=== PATIENT | male | born 1945 | race Caucasian/White ===

== ENCOUNTER 2017-02-13 16:58 | Emergency (ER) | payer OTHER, MEDICARE ==
[~2017-02-13] VITALS: Ht 175.2 cm; Wt 115.2 kg
[~2017-02-13 16:58] MED LIST: ADULT LOW DOSE81 MG PO; AMLODIPINE BESYL5 MG PO; GABAPENTIN300 MG PO; LIPITOR40 MG PO; LOSARTAN POTAS100 MG PO; OMEGA-3 KRILL1 EAC4 PO
[2017-02-13] MEDS ORDERED: HYDROCHLOROTH12.5 M1 PO (17:42)
[2017-02-13] MEDS ORDERED: LANTUS SOL100 UNIT/1 SUB-Q (17:43)
[2017-02-13] MEDS ORDERED: NORCO 7.5-3251 EACH PO (19:19)
== END 2017-02-13 19:36 | disposition home or self-care (01) ==
LOC: ED 16:58
DX: S20.211A Contusion of right front wall of thorax, initial encounter (principal); E11.9 Type 2 diabetes mellitus without complications; I10 Essential (primary) hypertension; Z79.4 Long term (current) use of insulin; Z79.82 Long term (current) use of aspirin; Z79.899 Other long term (current) drug therapy; W01.198A Fall on same level from slipping, tripping and stumbling with subsequent striking against other object, initial encounter
CPT/HCPCS: 71020; 99283

== ENCOUNTER 2022-02-07 06:35 | Day surgery (SDC) | payer MEDICARE, OTHER ==
[~2022-02-07] VITALS: Ht 175.3 cm; Wt 109.1 kg
[~2022-02-07 06:35] MED LIST changes: +AMLOD-VALSA-HC1 EAC1 PO; +FISH OIL 1,0001 EAC2 NG; +HUMULIN R100 UNIT/1 INJ; +HYDROCHLOROTH12.5 M1 PO; +LANTUS SOL100 UNIT/1 SUB-Q; +MULTI COMPLETE1 EACH PO; +NORCO 7.5-3251 EACH PO; +OMEGA 3 1,0001 EACH PO; +TART CHERRY CA1 EACH PO; +TURMERIC500 M3 PO
[2022-02-07] MEDS ORDERED: FUROSEMIDE20 MG PO (07:45)
--- NOTE | 2022-02-07 08:59 | NUR ---
02/07/22 0859 Latoya Herrera 0849-PATIENT ARRIVED TO PACU ON 6L MASK AWAKE RR EVEN. PATIENT LAYING LEFT LATERAL ABDOMEN SOFT. IVF INFUSING. SR. PER [employer] C[employer] APPLICATIONS COORDINATOR DO NOT NEED TO RECHECK GLUCOSE. 0851-PATIENT REPOSITIONED TO BACK REPORTS "CAN'T LAY ON LEFT SIDE ARM". HOB ELEVATED. PLACED ON RA RR EVEN 94%.
--- NOTE | 2022-02-07 12:56 | OR ---
[facility] [address], [place] [address] Signed DATE OF OPERATION: 02/07/2022 SURGEON: Ran Hsu MD PREOPERATIVE DIAGNOSES: 1. Personal history of colonic polyps, age 70 (2016). 2. Diverticulosis. 3. Father with colon cancer, age 51. 4. History of hemorrhoid banding. 5. Paternal aunts x2 with colon cancer. 6. Paternal uncle x1 with colon cancer. 7. Mildly anemic with hemoglobin 11.6, mean cell volume 92.0. POSTOPERATIVE DIAGNOSES: 1. A 5 mm polyp at 25 cm. 2. A 5 mm polyp at 18 cm. 3. Minimal left-sided diverticulosis. 4. Minimal internal hemorrhoids. PROCEDURE: Colonoscopy with hot biopsy. ESTIMATED BLOOD LOSS: None. INDICATIONS: Elmo is a 76-year-old gentleman asked to see me for a followup colonoscopy. He talked about a sigmoidoscopy around age 56. I helped him with a colonoscopy in 2016 at the age of 70 for screening purposes. He had two small adenomatous polyps removed at that time less than 4 mm in diameter. He had minimal diverticulosis. We had used Versed and fentanyl, but it was quite the ordeal. We had to use a nasal trumpet in his CPAP mask and so forth. In that regard, he is scheduled with monitored anesthesia care today and it worked out very well. In addition, his father was diagnosed and of colon cancer at age 51. Both his paternal aunts and a paternal uncle had colon cancer. He talked about hemorrhoid banding in the past. His heart rate runs slow in the 50s, but he did see his ambulatory analyst recently in evaluation, came out fine according to him. He has no lower GI complaints. In the office, I gave him a pamphlet on colonoscopy. He understands the nature of the test along with the risks including, but not limited to gas bloating, crampy abdominal pain, bleeding, perforation requiring surgery, and missed diagnosis. He had expressed understanding and wished to proceed. Electronically Signed By: RAN HSU MD 02/07/22 1256 PATIENT NAME: ELMO TREJO OPERATIVE REPORT DATE OF : 47 REPORT #: [id number] PHYSICIAN: RAN HSU MD PCP: BLANCHE GUERRERO PAC REPORT IS CONFIDENTIAL AND NOT TO BE RELEASED WITHOUT AUTHORIZATION [facility] [address] [place] [id number] Signed DESCRIPTION OF PROCEDURE: Elmo was taken into our endoscopy suite and placed in the left lateral decubitus position. He was given monitored anesthesia care with propofol per our nurse custody assistant. A digital rectal exam was performed and this was unremarkable. He had good sphincter tone and no external hemorrhoids. The adult colonoscope was introduced and advanced under direct visualization of the camera into the cecum itself. His prep was good. We could see the appendiceal orifice and ileocecal valve. The scope was then slowly withdrawn. We took pictures throughout for photodocumentation. We found just a few diverticula on the left side of the colon, there were small in size, few in number, and scattered about. He had two tiny polyps removed as stated above. Upon retroflexion of scope, there was very minimal internal hemorrhoid tissue. After this, the gas was suctioned out, the colonoscope removed. Elmo tolerated the procedure quite well. RECOMMENDATIONS: I will see Elmo back in my office in 7 to 14 days to review his results. He remains on the 5-year plan, so long his health holds up. Ran Hsu MD ALB/MODL /[id number] cc: Patient Chart MD Blanche Coles PA-C Copies: RAN HSU MD, ERIKA PAC ~ Electronically Signed By: RAN HSU MD 02/07/22 1256 PATIENT NAME: ELMO TREJO OPERATIVE REPORT DATE OF : 47 REPORT #: [id number] PHYSICIAN: RAN HSU MD PCP: BLANCHE GUERRERO REPORT IS CONFIDENTIAL AND NOT TO BE RELEASED WITHOUT AUTHORIZATION
--- NOTE | 2022-02-11 16:23 | PATH ---
[facility] [address] [place], [place] [address] Signed SPECIMEN(S): A POLYP AT 25 CM SPECIMEN(S): B POLYP AT 18 CM SPECIMEN SOURCE: A. POLYP AT 25 CM B. POLYP AT 18 CM CLINICAL HISTORY: Colonoscopy. History of polyps and diverticulosis. FINAL PATHOLOGIC DIAGNOSIS: A. Colon, polyp at 25 cm, polypectomy: - Cauterized colonic mucosa with no identified histopathologic abnormality. - Negative for dysplasia or malignancy. B. Colon, polyp at 18 cm, polypectomy: - Hyperplastic polyp. - Negative for dysplasia or malignancy. COMMENT: Regarding specimen A: The degree of cautery artifact limits histologic evaluation for hyperplastic changes. NAL:cml:C2NR MICROSCOPIC EXAMINATION: Histologic sections of all submitted blocks are examined by light microscopy. These findings, together with the gross examination, support the pathologic diagnosis. GROSS DESCRIPTION: Two specimens are received in two containers, labeled "SC." A. The specimen, labeled "SC, polyp at 25 cm," is received in formalin and consists of one marie soft tissue fragment that measures 0.3 cm in greatest dimension. The specimen is entirely submitted in cassette (A1). B. The specimen, labeled "SC, polyp at 18 cm," is received in formalin and consists of one marie soft tissue fragment that measures 0.3 cm in greatest dimension. The specimen is entirely submitted in cassette (B1). AT (under the direct supervision of a pathologist) The Gross Description was prepared using a voice recognition system. The report was reviewed for accuracy; however, sound-alike word errors, addition and/or PATIENT NAME: SHASTA TREJO PATHOLOGY DATE OF : 47 REPORT #: [id number] PHYSICIAN: RICKI ACUNA PCP: AISHA GUERRERO PAC REPORT IS CONFIDENTIAL AND NOT TO BE RELEASED WITHOUT AUTHORIZATION [facility] [address] [place], [place] [address] Signed deletions may occur. If there is any question about this report, please contact Client Services. PERFORMING LABORATORY: The technical component was performed by [facility] [address] (CLIA# [id number]). Professional interpretation was performed by [facility], [address] [address] (CLIA# [id number]). Diagnostician: Bettina Lovett MD Pathologist Electronically Signed 02/11/2022 Copies: ~ PATIENT NAME: SHASTA TREJO PATHOLOGY DATE OF : 47 REPORT #: [id number] PHYSICIAN: RICKI ACUNA PCP: AISHA GUERRERO PAC REPORT IS CONFIDENTIAL AND NOT TO BE RELEASED WITHOUT AUTHORIZATION
== END 2022-02-07 09:33 | disposition home or self-care (01) ==
LOC: OPS 06:35 → DS 06:35 → OPS 08:00 → DS 08:00 → OPS 09:33
PROVIDERS: ATTEND Colon & Rectal Surgery
PROC: 0DBE8ZX Excision of Large Intestine, Via Natural or Artificial Opening Endoscopic, Diagnostic (ICD-10-PCS; principal; 2022-02-07 08:00)
DX: K63.5 Polyp of colon (principal); K57.30 Diverticulosis of large intestine without perforation or abscess without bleeding; K64.8 Other hemorrhoids; D64.9 Anemia, unspecified; E11.9 Type 2 diabetes mellitus without complications; I10 Essential (primary) hypertension; K21.9 Gastro-esophageal reflux disease without esophagitis; G47.30 Sleep apnea, unspecified; E78.5 Hyperlipidemia, unspecified; M19.90 Unspecified osteoarthritis, unspecified site; Z86.711 Personal history of pulmonary embolism; Z86.010 Personal history of colon polyps; Z80.0 Family history of malignant neoplasm of digestive organs; Z79.4 Long term (current) use of insulin
CPT/HCPCS: J2704; J7121

== ENCOUNTER 2024-07-21 08:27 | Emergency (ER) | payer MEDICARE, OTHER ==
[~2024-07-21] VITALS: Ht 175.3 cm; Wt 107.4 kg
[~2024-07-21 08:27] MED LIST changes: +FUROSEMIDE20 MG PO
[2024-07-21] MEDS ORDERED: SODIUM CHLORIDE 0.9% 1,000 ML IV ONE (09:00)
[2024-07-21] MEDS ORDERED: ondansetron HCL 4 MG/2 ML VIAL IV ONE (09:00)
[2024-07-21 09:41] LABS: BASOPHILS 1.1 % (0-2); EOSINOPHILS 1.4 % (0-6); HEMATOCRIT 32.9 % (35.0-50.0); HEMOGLOBIN 11.1 g/dL (12.0-18.0); LYMPHOCYTES 16.4 % (24-44); MCH 32.5 (27-36); MCHC 33.8 g/dl (30-36); MCV 96.1 fl (81-99); MONOCYTES 5.5 % (0-12); NEUTROPHILS 75.6 % (39-80); PLATELET COUNT 481 K/uL (140-440); RBC 3.42 M/ul (4.3-5.7); RDW 14.7 (10.5-15.0)
[2024-07-21 10:04] LABS: ALBUMIN 3.2 g/dL (3.4-5.0); ALBUMIN/GLOBULIN RATIO 0.7 (1.1-2.4); BILIRUBIN, TOTAL 0.5 ng/dL (0.2-1.0); BUN/CREATININE RATIO 11.79 (6.0-28.6); CALCIUM 10.9 mg/dL (8.5-10.1); CREATININE, SERUM 1.95 mg/dL (0.70-1.30); PROTEIN, TOTAL 7.8 g/dL (6.4-8.2)
[2024-07-21] MEDS ORDERED: ONDANSETRON ODT8 MG PO (10:22)
[2024-07-21 11:50] LABS: BILIRUBIN, URINE NEGATIVE (negative); BLOOD/HGB, URINE NEGATIVE (Negative); KETONE, URINE NEGATIVE (Negative); LEUK ESTERASE, URINE NEGATIVE (negative); NITRITE, URINE NEGATIVE (negative)
[2024-07-21] MEDS ORDERED: AMOX TR-K CLV1 EAC1 PO (12:25)
[2024-07-21 12:54] VITALS: BP 122/66
[2024-07-22 06:08] LABS: ADRENOCORTICOTROPIC HORMONE 29.6 pg/mL (7.2-63.3)
--- NOTE | 2024-07-22 15:31 | EKG ---
[facility] [address] [place] [address] Signed Sinus rhythm with marked sinus arrhythmia Nonspecific T wave abnormality Abnormal ECG When compared with ECG of 29-JAN-2022 12:54, No significant change was found Confirmed by Jourdan Cowart MD () on 07/22/2024 3:31:11 PM Electronically Signed By: JOURDAN COWART MD 07/22/24 1531 PATIENT NAME: SHASTA TREJO Electrocardiogram DATE OF : 47 PHYSICIAN: JOURDAN COWART MD REPORT #: [id number] REPORT IS CONFIDENTIAL AND NOT TO BE RELEASED WITHOUT AUTHORIZATION
--- NOTE | 2024-07-22 15:33 | EKG ---
[facility] [address] [facility] [place] [address] Signed Sinus rhythm with frequent premature ventricular complexes in a pattern of bigeminy Nonspecific T wave abnormality Abnormal ECG When compared with ECG of 21-JUL-2024 09:05, premature ventricular complexes are now present QT has lengthened Confirmed by Jourdan Cowart MD () on 07/22/2024 3:33:09 PM Electronically Signed By: JOURDAN COWART MD 07/22/24 1533 PATIENT NAME: SHASTA TREJO Electrocardiogram DATE OF : 47 PHYSICIAN: JOURDAN COWART MD REPORT #: [id number] REPORT IS CONFIDENTIAL AND NOT TO BE RELEASED WITHOUT AUTHORIZATION
== END 2024-07-21 12:57 | disposition home or self-care (01) ==
LOC: ED 08:27
PROVIDERS: Emergency Medicine
DX: R55 Syncope and collapse (principal); E11.9 Type 2 diabetes mellitus without complications; I10 Essential (primary) hypertension; Z79.899 Other long term (current) drug therapy; Z79.4 Long term (current) use of insulin
CPT/HCPCS: 36415; 70450; 80053; 81003; 82024; 84484; 85025; 93005; 93010; 96374; 99284-25; J2405; J7030

== ENCOUNTER 2024-09-11 04:31 | Emergency (ER) | payer MEDICARE, OTHER ==
[~2024-09-11] VITALS: Ht 175.3 cm; Wt 103.4 kg
[~2024-09-11 04:31] MED LIST changes: +AMOX TR-K CLV1 EAC1 PO; +ONDANSETRON ODT8 MG PO
[2024-09-11] MEDS ORDERED: DEXAMETHASONE SOD PHOS 10 MG/ML VIAL IV ONE (04:45)
[2024-09-11] MEDS ORDERED: droPERidol 5 MG/2 ML VIAL IV ONE (04:45)
[2024-09-11] MEDS ORDERED: LACTATED RINGER'S 1,000 ML IV ONE (04:45)
[2024-09-11 05:52] LABS: EOSINOPHILS 2.2 % (0-6); HEMATOCRIT 35.2 % (35.0-50.0); HEMOGLOBIN 11.6 g/dL (12.0-18.0); LYMPHOCYTES 19.6 % (24-44); MCH 30.5 (27-36); MCHC 32.9 g/dl (30-36); MCV 92.7 fl (81-99); MONOCYTES 7.3 % (0-12); NEUTROPHILS 69.9 % (39-80); PLATELET COUNT 216 K/uL (140-440); RBC 3.79 M/ul (4.3-5.7)
[2024-09-11 06:07] LABS: ALBUMIN 3.5 g/dL (3.4-5.0); ALBUMIN/GLOBULIN RATIO 1.03 (1.1-2.4); ANION GAP 9.1 (7-21); BILIRUBIN, TOTAL 0.3 ng/dL (0.2-1.0); BUN/CREATININE RATIO 18.93 (6.0-28.6); CALCIUM 10.6 mg/dL (8.5-10.1); CREATININE, SERUM 1.32 mg/dL (0.70-1.30); MAGNESIUM 1.9 mg/dL (1.8-2.4); POTASSIUM 4.1 mmol/L (3.5-5.1); PROTEIN, TOTAL 6.9 g/dL (6.4-8.2)
[2024-09-11] MEDS ORDERED: ONDANSETRON ODT8 MG PO (06:43)
[2024-09-11] MEDS ORDERED: MECLIZINE HCL25 MG PO (06:43)
[2024-09-11 07:03] VITALS: BP 160/75
--- NOTE | 2024-09-13 14:55 | EKG ---
[facility] [address] [facility] [place] [address] Signed Sinus bradycardia with premature atrial complexes Otherwise normal ECG When compared with ECG of 21-JUL-2024 09:55, premature ventricular complexes are no longer present premature atrial complexes are now present Nonspecific T wave abnormality no longer evident in Anterolateral leads QT has shortened Confirmed by Rupert Arreguin MD ([id number]) on 09/13/2024 2:55:12 PM Electronically Signed By: RUPERT ARREGUIN MD 09/13/24 1455 PATIENT NAME: TREJOSHASTA D Electrocardiogram DATE OF : 47 PHYSICIAN: RUPERT ARREGUIN MD REPORT #: [id number] REPORT IS CONFIDENTIAL AND NOT TO BE RELEASED WITHOUT AUTHORIZATION
== END 2024-09-11 07:16 | disposition home or self-care (01) ==
LOC: ED 04:31
PROVIDERS: Family Medicine
DX: R42 Dizziness and giddiness (principal); E11.9 Type 2 diabetes mellitus without complications; I10 Essential (primary) hypertension; G47.30 Sleep apnea, unspecified; Z98.890 Other specified postprocedural states; Z79.4 Long term (current) use of insulin; Z79.899 Other long term (current) drug therapy
CPT/HCPCS: 36415; 70450; 80053; 83735; 84484; 85025; 93005; 93010; 96374; 96375; 99284-25; J1100; J1790